=== PATIENT | female | born 1970 | race Two or more races ===

== ENCOUNTER 2024-04-02 07:20 | Outpatient (RCR) | payer BC, SELFPAY | END 2024-04-02 23:59 | disposition home or self-care (01) | LOC: RPT 07:20 | PROVIDERS: ATTENDING PHYSICIAN Obstetrics & Gynecology Gynecology; FAMILY PHYSICIAN Family Medicine | DX: N94.12 Deep dyspareunia (principal); M62.89 Other specified disorders of muscle; R10.2 Pelvic and perineal pain; Z73.6 Limitation of activities due to disability; R27.8 Other lack of coordination; M62.838 Other muscle spasm | CPT/HCPCS: 97140; 97162; 97530 ==

== ENCOUNTER 2024-05-09 10:08 | Outpatient (RCR) | payer BC, SELFPAY | END 2024-05-09 23:59 | disposition home or self-care (01) | LOC: RPT 10:08 | PROVIDERS: ATTENDING PHYSICIAN Obstetrics & Gynecology Gynecology; FAMILY PHYSICIAN Family Medicine | DX: N94.12 Deep dyspareunia (principal); M62.89 Other specified disorders of muscle; R10.2 Pelvic and perineal pain; Z73.6 Limitation of activities due to disability; M62.838 Other muscle spasm; R27.8 Other lack of coordination | CPT/HCPCS: 97140; 97530 ==

== ENCOUNTER 2024-06-11 17:08 | Outpatient (RCR) | payer BC, SELFPAY | END 2024-06-11 23:59 | disposition home or self-care (01) | LOC: RPT 17:08 | PROVIDERS: ATTENDING PHYSICIAN Obstetrics & Gynecology Gynecology; FAMILY PHYSICIAN Family Medicine | DX: N94.12 Deep dyspareunia (principal); M62.89 Other specified disorders of muscle; R10.2 Pelvic and perineal pain; Z73.6 Limitation of activities due to disability; R27.8 Other lack of coordination; M62.838 Other muscle spasm | CPT/HCPCS: 97140; 97530 ==

== ENCOUNTER 2024-07-16 17:05 | Outpatient (RCR) | payer BC, SELFPAY | END 2024-07-16 23:59 | disposition home or self-care (01) | LOC: RPT 17:05 | PROVIDERS: ATTENDING PHYSICIAN Obstetrics & Gynecology Gynecology; FAMILY PHYSICIAN Family Medicine | DX: N94.12 Deep dyspareunia (principal); M62.89 Other specified disorders of muscle; R10.2 Pelvic and perineal pain; Z73.6 Limitation of activities due to disability; R27.8 Other lack of coordination; M62.838 Other muscle spasm | CPT/HCPCS: 97110; 97140; 97530 ==

== ENCOUNTER 2024-08-03 06:11 | Outpatient (RCR) | payer BC, SELFPAY | END 2024-08-03 23:59 | disposition home or self-care (01) | LOC: RPT 06:11 | PROVIDERS: ATTENDING PHYSICIAN Obstetrics & Gynecology Gynecology; FAMILY PHYSICIAN Family Medicine | DX: N94.12 Deep dyspareunia (principal); M62.89 Other specified disorders of muscle; R10.2 Pelvic and perineal pain; Z73.6 Limitation of activities due to disability; R27.8 Other lack of coordination; M62.838 Other muscle spasm | CPT/HCPCS: 97140; 97530 ==